=== PATIENT | female | born 1945 | race Caucasian/White ===

== ENCOUNTER 2017-01-16 05:25 | Day surgery (SDC) | payer OTHER ==
[~2017-01-16] VITALS: Ht 162.6 cm; Wt 108.0 kg
[~2017-01-16 05:25] MED LIST: BYSTOLIC10 MG PO; FISH OIL 1,2001 EAC4 PO; HYZAAR 100-21 TABLET PO; INVOKAMET 150-1 EACH PO; LO-DOSE ASPIRIN81 M2 PO; NEURONTIN600 MG PO; PLAVIX75 MG PO; TRESIBA FL100 UNIT/1 SC; WOMEN'S DAILY1 EAC4 PO; ZANTAC150 MG PO; ZYLOPRIM300 MG PO
[2017-01-16 06:13] VITALS: BP 136/60
[2017-01-16 06:41] LABS: POINT-OF-CARE METER ID UU14174212
[2017-01-16] MEDS ORDERED: NORCO 5/3251 TABLET PO (08:35)
[2017-01-16 09:05] LABS: POINT-OF-CARE METER ID UU13113675
[2017-01-16 09:29] VITALS: BP 129/53
[2017-01-16 10:35] VITALS: BP 149/66
== END 2017-01-16 10:39 | disposition home or self-care (01) ==
LOC: SDC 05:25
PROVIDERS: Surgery
PROC: 07BH0ZX Excision of Right Inguinal Lymphatic, Open Approach, Diagnostic (ICD-10-PCS; principal; 2017-01-16)
DX: R59.0 Localized enlarged lymph nodes (principal); E11.9 Type 2 diabetes mellitus without complications; M10.00 Idiopathic gout, unspecified site; I10 Essential (primary) hypertension; K21.9 Gastro-esophageal reflux disease without esophagitis; Z82.49 Family history of ischemic heart disease and other diseases of the circulatory system; Z79.82 Long term (current) use of aspirin; Z79.4 Long term (current) use of insulin; Z79.02 Long term (current) use of antithrombotics/antiplatelets; Z87.891 Personal history of nicotine dependence
CPT/HCPCS: 82948; 87070; 87075; 87102; 87116; 87205; 87206; 88305; J0690; J1100; J2250; J2405; J3010; S0020

== ENCOUNTER 2017-02-15 13:46 | Day surgery (SDC) | payer OTHER ==
[~2017-02-15] VITALS: Ht 162.6 cm; Wt 108.3 kg
[~2017-02-15 13:46] MED LIST changes: +HYZAAR 100-11 TABLET PO; +NORCO 5/3251 TABLET PO; +TRESIBA FL200 UNIT/1 SC
[2017-02-15 14:14] LABS: POINT-OF-CARE METER ID UU14174212
[2017-02-15 14:22] VITALS: BP 145/61
[2017-02-15 18:00] VITALS: BP 154/67
[2017-02-15 19:21] VITALS: BP 139/74
== END 2017-02-15 19:26 | disposition home or self-care (01) ==
LOC: SDC 13:46
PROVIDERS: Surgery
DX: I87.8 Other specified disorders of veins (principal); C85.90 Non-Hodgkin lymphoma, unspecified, unspecified site; E11.9 Type 2 diabetes mellitus without complications; M10.00 Idiopathic gout, unspecified site; I10 Essential (primary) hypertension; K21.9 Gastro-esophageal reflux disease without esophagitis; Z79.82 Long term (current) use of aspirin; Z83.3 Family history of diabetes mellitus; Z82.49 Family history of ischemic heart disease and other diseases of the circulatory system
CPT/HCPCS: 71010; 82948; 93005; C1751; J0330; J0690; J1100; J2405; J2710

== ENCOUNTER 2017-02-23 20:29 | Emergency (ER) | payer OTHER ==
[~2017-02-23] VITALS: Ht 162.6 cm; Wt 109.0 kg
[2017-02-23 21:30] VITALS: BP 173/69
== END 2017-02-23 21:31 | disposition home or self-care (01) ==
LOC: EME 20:29
DX: R04.0 Epistaxis (principal); I10 Essential (primary) hypertension; E11.9 Type 2 diabetes mellitus without complications; C85.90 Non-Hodgkin lymphoma, unspecified, unspecified site; Z87.891 Personal history of nicotine dependence; Z79.82 Long term (current) use of aspirin
CPT/HCPCS: 99281; 99282

== ENCOUNTER → 2017-06-12 | Outpatient (CLI) | payer OTHER | END | disposition home or self-care (01) | LOC: AMB 08:50 | DX: Z45.2 Encounter for adjustment and management of vascular access device (principal); I87.8 Other specified disorders of veins; Z85.72 Personal history of non-Hodgkin lymphomas ==